=== PATIENT | male | born 1985 | race African-American/Black ===

== ENCOUNTER 2017-06-01 02:36 | Emergency (ER) | payer MEDICAID ==
[~2017-06-01] VITALS: Ht 188 cm; Wt 116.0 kg
[~2017-06-01 02:36] MED LIST: DEPAKOTE; WELLBUTRIN
[2017-06-01 02:45] VITALS: BP 167/111
== END 2017-06-01 04:42 | disposition left against medical advice (07) ==
LOC: ER 02:36
DX: I10 Essential (primary) hypertension (principal); Z53.21 Procedure and treatment not carried out due to patient leaving prior to being seen by health care provider